=== PATIENT | female | born 1985 | race Caucasian/White ===

== ENCOUNTER 2020-01-06 20:35 | Emergency (ER) | payer OTHER ==
[~2020-01-06] VITALS: Ht 157.5 cm; Wt 54.4 kg
[2020-01-06 20:39] VITALS: BP 136/63
[2020-01-06] MEDS ORDERED: NACL 0.9% 1,000 ML IV ONE (20:40)
[2020-01-06] MEDS ORDERED: LORazepam 2 MG/ML VIAL IVP ONE ×2 (20:40→21:20)
[2020-01-06 20:58] LABS: BASOPHILS # (AUTO) 0.2 K/uL (0.00-0.22); BASOPHILS % (AUTO) 1.1 % (0.0-2.0); EOSINOPHILS # (AUTO) 0.2 K/uL (0-0.4); EOSINOPHILS % (AUTO) 1.3 % (0.0-4.0); HEMATOCRIT 33.3 % (36-48); HEMOGLOBIN 9.7 g/dL (12.0-16.0); LYMPHOCYTES # (AUTO) 7.9 K/uL (2.5-16.5); LYMPHOCYTES % (AUTO) 50.2 % (20.5-51.1); MEAN CORPUSCULAR HEMOGLOBIN 21 pg (27-31); MEAN CORPUSCULAR HGB CONC 29 g/dL (33-37); MEAN CORPUSCULAR VOLUME 72.3 fL (80-94); MONOCYTES # (AUTO) 0.8 K/uL (0.8-1.0); MONOCYTES % (AUTO) 5.4 % (1.7-9.3); NEUTROPHILS # (AUTO) 6.6 K/uL (1.8-8.0); PLATELET COUNT (AUTO) 605 K/uL (140-450); WHITE BLOOD COUNT (AUTO) 15.6 K/uL (4.5-13.5)
[2020-01-06 21:16] LABS: ALBUMIN 4.1 g/dL (3.4-5.0); ANION GAP 31.3 (8-16); CARBON DIOXIDE 11.6 mmol/L (21-32); CREATININE 1.2 mg/dL (0.6-1.3); POTASSIUM 3.9 mmol/L (3.5-5.1); TOTAL BILIRUBIN 0.3 mg/dL (0.0-1.0)
[2020-01-06] MEDS ORDERED: PHENobarbital 65 MG/ML VIAL IV ONE (21:45)
[2020-01-06] MEDS ORDERED: OXcarbazepine 150 MG TAB PO SCH ×2 (22:00→23:55)
[2020-01-06] MEDS ORDERED: LIDOCAINE 2% 1000 MG/50 ML VIAL INJ ONE ×2 (22:33→22:35)
[2020-01-06] MEDS ORDERED: AMOXICILLIN 500 MG CAP PO ONE (22:35)
[2020-01-06 23:14] LABS: APPEARANCE,URINE CLEAR (CLEAR); BILIRUBIN,URINE NEGATIVE (NEGATIVE); BLOOD, URINE 3+ (NEGATIVE); COLOR,URINE YELLOW (YELLOW); LEUKOCYTE ESTERASE ,URINE NEGATIVE (NEGATIVE); NITRITE, URINE NEGATIVE (NEGATIVE); UGLUCOSE NEGATIVE (NEGATIVE)
[2020-01-06 23:33] LABS: WBC,URINE 0-5 /HPF (0-5)
[2020-01-06 23:59] VITALS: BP 90/61
== END 2020-01-06 23:59 | disposition home or self-care (01) ==
LOC: EDBD 20:35 → MED 20:35
DX: S01.511A Laceration without foreign body of lip, initial encounter (principal); R56.9 Unspecified convulsions; W18.30XA Fall on same level, unspecified, initial encounter; Y93.89 Activity, other specified; Y92.89 Other specified places as the place of occurrence of the external cause; Y99.8 Other external cause status
CPT/HCPCS: 12011; 36415; 70450; 70486; 80053; 80173; 80185; 81001; 84703; 85025; 96374; 96376; 99285; J2001; J2060; J2560; J7030

== ENCOUNTER 2021-02-01 13:08 | Emergency (ER) | payer OTHER ==
[~2021-02-01] VITALS: Ht 152.4 cm; Wt 62.1 kg
--- NOTE | 2021-02-01 13:21 | NUR ---
Pt taken to ER bed 9.
[2021-02-01 13:27] VITALS: BP 100/70
[2021-02-01] MEDS ORDERED: LORazepam 2 MG/ML VIAL IVP ONE (13:45)
[2021-02-01] MEDS ORDERED: ACETAMINOPHEN 325 MG TAB PO ONE (13:45)
--- NOTE | 2021-02-01 14:27 | NUR ---
PT BIBA WITH C/O UNWITNESS SEIZURE TODAY AT WORK, PT STATED TAKEN HER MORNING MEDICATIONS. LAST SEIZURE STATED YESTERDAY. PMH: SEIZURES RX: [id number]
--- NOTE | 2021-02-01 15:01 | NUR ---
Pt taken to CT via ran.
[2021-02-01 16:11] VITALS: BP 100/70
--- NOTE | 2021-02-01 16:12 | NUR ---
Patient discharged with v/s stable. Written and verbal after care instructions given and explained. Patient verbalized understanding. Wheel Chair Assisted with to car. All questions addressed prior to discharge. Advised to follow up with PMD.
== END 2021-02-01 16:12 | disposition home or self-care (01) ==
LOC: MED 13:08
DX: S09.90XA Unspecified injury of head, initial encounter (principal); R56.9 Unspecified convulsions; J45.909 Unspecified asthma, uncomplicated; F12.10 Cannabis abuse, uncomplicated; W19.XXXA Unspecified fall, initial encounter; Y93.89 Activity, other specified; Y92.89 Other specified places as the place of occurrence of the external cause; Y99.8 Other external cause status
CPT/HCPCS: 36415; 70450; 80156; 96374; 99284; J2060